=== PATIENT | female | born 1955 | race Caucasian/White ===

== ENCOUNTER → 2017-10-23 | Outpatient (CLI) | payer BC ==
[~2017-10-23] MED LIST: CENEST; CLEOCIN; NORCO 325 MG-51 TAB PO
== END ==
LOC: MC.RAD 11:30
DX: Z12.31 Encounter for screening mammogram for malignant neoplasm of breast (principal)

== ENCOUNTER 2019-03-18 09:48 | Emergency (ER) | payer MEDICARE, BC ==
[~2019-03-18] VITALS: Ht 152.4 cm; Wt 59.1 kg
[2019-03-18 09:56] VITALS: BP 128/72; TEMP 97.1
[2019-03-18] MEDS ORDERED: LEXAPRO 10MG10 MG PO (10:49)
[2019-03-18] MEDS ORDERED: ZITHROMAX Z PA250 MG PO (12:14)
[2019-03-18] MEDS ORDERED: TESSALON PERLE200 MG PO ×2 (12:14)
[2019-03-18] MEDS ORDERED: TUSS PO (12:18)
[2019-03-18 12:50] VITALS: PULSE 88
== END 2019-03-18 12:50 | disposition home or self-care (01) ==
LOC: COL.ER 09:48
DX: J20.9 Acute bronchitis, unspecified (principal); F32.9 Major depressive disorder, single episode, unspecified; Z90.710 Acquired absence of both cervix and uterus; Z87.891 Personal history of nicotine dependence
CPT/HCPCS: J1885; J2405

== ENCOUNTER → 2019-05-04 | Outpatient (CLI) | payer MEDICARE, BC ==
[~2019-05-04] MED LIST changes: +LEXAPRO 10MG10 MG PO; +TESSALON PERLE200 MG PO; +TUSS PO; +ZITHROMAX Z PA250 MG PO
== END ==
LOC: MC.RAD 08:24
DX: Z12.31 Encounter for screening mammogram for malignant neoplasm of breast (principal)

== ENCOUNTER 2020-03-09 13:37 | Emergency (ER) | payer MEDICARE, BC ==
[~2020-03-09] VITALS: Ht 152.4 cm; Wt 59.1 kg
[2020-03-09 13:50] VITALS: TEMP 96.3
[2020-03-09] MEDS ORDERED: WELLBUTRIN 100100 MG PO (14:29)
[2020-03-09] MEDS ORDERED: NORCO 325 MG-51 TAB PO ×3 (16:14→17:48)
[2020-03-09 17:48] VITALS: BP 135/64; PULSE 79
== END 2020-03-09 17:46 | disposition home or self-care (01) ==
LOC: COL.ER 13:37
DX: S52.501A Unspecified fracture of the lower end of right radius, initial encounter for closed fracture (principal); W01.0XXA Fall on same level from slipping, tripping and stumbling without subsequent striking against object, initial encounter; Y92.009 Unspecified place in unspecified non-institutional (private) residence as the place of occurrence of the external cause
CPT/HCPCS: J1170; J1885; J2405; J3010; J7040; Q4050

== ENCOUNTER → 2020-12-25 | Outpatient (CLI) | payer MEDICARE, BC ==
[~2020-12-25] MED LIST changes: +WELLBUTRIN 100100 MG PO
== END ==
LOC: MC.RAD 08:30
DX: Z12.31 Encounter for screening mammogram for malignant neoplasm of breast (principal)

== ENCOUNTER → 2022-02-07 | Outpatient (CLI) | payer MEDICARE, BC | LOC: MC.RAD 10:07 | DX: Z12.31 Encounter for screening mammogram for malignant neoplasm of breast (principal) ==

== ENCOUNTER → 2023-08-05 | Outpatient (CLI) | payer MEDICARE, BC | LOC: COL.RAD 08:30 | DX: Z12.2 Encounter for screening for malignant neoplasm of respiratory organs (principal); K76.9 Liver disease, unspecified ==

== ENCOUNTER → 2023-09-07 | Outpatient (CLI) | payer MEDICARE | LOC: MC.RAD 12:38 | DX: N63.15 Unspecified lump in the right breast, overlapping quadrants (principal) ==